=== PATIENT | female | born 1980 | race Two or more races ===

== ENCOUNTER 2025-03-19 11:14 | Outpatient (REF) | payer MEDICAID, SELFPAY ==
--- OUTSIDE RECORDS SUMMARY | 2025-03-19 10:15 | XMS_ITS | Encounter Summary ---
Author Organization [employer] Address [address] [facility] 7 [place] [address] Care Team Providers Care Event Specialist Name Role Phone Nadya Miller NP Primary Care Provider [phone] Reason for Referral * Consultation (Routine) - Authorized Specialty Diagnoses / Procedures Referred By David t Referred To Contact Dental Space Operations / Dentistry Diagnoses Healthcare maintenance Nadya Miller NP [address] [place] [address] Phone: tel: fax: Referral ID Status Reason Start Date Expiration Date Visits Requested Visits Authorized [id number] Authorized Consult and Treat 03/19/2025 03/19/2026 1 1 * Imaging (Routine) - Authorized Specialty Diagnoses / Procedures Referred By David t Referred To Contact Radiology Diagnoses Routine screening for STI (sexually transmitted infection) Procedures BI Mammogram Screening Tomosynthesis Bilateral Nadya Miller NP [address] [place] [address] Phone: tel: fax: [facility] [address] [place] [phone] Phone: tel: fax: Referral ID Status Reason Start Date Expiration Date V isits Requested Visits Authorized [id number] Authorized 03/19/2025 03/19/2026 1 1 * Imaging (Routine) - Authorized Specialty Diagnoses / Procedures Referred By Contac t Referred To Contact Radiology Diagnoses Menorrhagia with regular cycle Procedures Us Pelvis complete Nadya Miller NP [address] [place] [address] Phone: tel: fax: [address] [phone] Phone: tel: fax: Referral ID Status Reason Start Date Expiration Date V isits Requested Visits Authorized [id number] Authorized 03/19/2025 03/19/2026 1 1 * Imaging (Urgent) - Authorized Specialty Diagnoses / Procedures Referred By Contac t Referred To Contact Radiology Diagnoses Menorrhagia with regular cycle Procedures US Pelvis Transvaginal Nadya Miller NP [address] [place] [address] Phone: tel: fax: [address] [phone] Phone: tel: fax: Referral ID Status Reason Start Date Expiration Date V isits Requested Visits Authorized [id number] Authorized 03/19/2025 03/19/2026 1 1 * Consultation (Routine) - Pending Review Specialty Diagnoses / Procedures Referred By David t Referred To Contact Obstetrics and Gynecology Diagnoses Menorrhagia with regular cycle Nadya Miller NP [address] [place] [address] Phone: tel: fax: Referral ID Status Reason Start Date Expiration Date Visits Requested Visits Authorized [id number] Pending Review Specialty Services Required 03/19/2026 1 1 Reason for Visit * Reason Comments New pt Encounter Details Date Type Department Care Team (Late st Contact Info) Description 03/19/2025 10:15 AM EST Office Visit [facility] [address] [place] [address] Nadya Miller NP [address] [place], [place] [id number] Healthcare maintenance (Primary Dx); Restless leg syndrome; Routine screening for STI (sexually transmitted infection); Lipid screening; Menorrhagia with regular cycle; Mild intermittent asthma, unspecified whether complicated; Acute right-sided low back pain without sciatica; Acute cystitis with hematuria Social History Tobacco Use Types Packs/Day Years Used Date Smoking Tobacco: Never Assessed Housing Stability Answer Date Recorded What is your housing situation today? I have mariann carlos 03/11/[address] you li ve. Do you have problems with any of the following? None of the above 03/11/2025 Food Insecurity Answer Date Recorded Within the past 12 months, y ou worried that your food would run out before you got money to buy more: Never True 03/11/2025 Within the past 12 months,th e food you bought just didn't last and you didn't have enough money to get more: Never True 01/2025 Transportation Answer Date Recorded In the past 12 months, has l ack of transportation kept you from medical appts, meetings, work or from getting things needed for daily living? No 03/11/2025 Utilities Answer Date Recorded In the past 12 months, has t he electric, gas, oil or water company threatened to shut off services in your home? No 03/11/2025 Internet Access Answer Date Recorded Internet Access Q1 Yes 03/11/2025 Internet Access Q2 Not on file 03/11/2025 Comments Unknown Sex and Gender Information Value Date Recorded Sex Assigned at Female 03/04/2025 2:11 PM EST Legal Sex Female 7:05 PM EDT Gender Identity Female 07/12/2023 7:05 PM EDT Sexual Orientation Straight 07/12/2023 7: 05 PM EDT documented as of this encounter Last Filed Vital Signs Vital Sign Reading Time Taken Comments Blood Pressure 128/86 03/19/2025 10:10 AM EST Pulse 76 03/19/2025 10:10 AM EST Temperature 36.9 C (98.4 F) 03/19/2025 10:10 AM EST Respiratory Rate 17 03/19/2025 10:10 AM EST Oxygen Saturation - - Inhaled Oxygen Concentration - - Weight 100 kg (220 lb 12.8 oz) 03/19/2025 10:10 AM EST Height 166.7 cm (5' 5.63 ) 03/19/2025 10:10 AM [place] GLORIA Body Mass Index 36.04 03/19/2025 10:10 AM EST documented in this encounter Functional Status * Trouble falling or staying asleep, or sleeping too much Answer Date of Assessment Author Nearly every day 03/19/2025 11:09 AM Indu Lopez [place] * Feeling tired or having little energy Answer Date of Assessment Author Nearly every day 03/19/2025 11:09 AM Indu Lopez [place] * Poor appetite or overeating Answer Date of Assessment Author Nearly every day 03/19/2025 11:09 AM Indu Lopez [place] * Feeling bad about yourself - or that you are a failure or have let yourself or your family down Answer Date of Assessment Author Not at all 03/19/2025 11:09 AM Indu Poe [place], [place] * Trouble concentrating on things, such as reading the newspaper or watching television Answer Date of Assessment Author Not at all 03/19/2025 11:09 AM Indu Poe [place] * Moving or speaking so slowly that other people could have noticed? Or the opposite - being so fidgety or restless that you have been moving around a lot more than usual. Answer Date of Assessment Author Not at all 03/19/2025 11:09 AM Indu Poe [place] * Thoughts that you would be better off or hurting yourself in some way Answer Date of Assessment Author Not at all 03/19/2025 11:09 AM Indu Poe [place] * Over the last 2 weeks, how often have you been bothered by any of the following problems? Question Answer Date of Assessment Author Feeling nervous, anxious, or on edge 3 03/19/2025 11:09 AM Indu Hays [place] Not being able to stop or control worrying 1 03/19/2025 11:09 AM Indu Hays [place] Worrying too much about different things 1 03/19/2025 11:09 AM Indu Hays [place] Trouble relaxing 3 03/19/2025 11:09 AM Indu Hays [place] Being so restless that it is hard to sit still 0 03/19/2025 11:09 AM Indu Hays [place] Becoming easily annoyed or irritable 0 03/19/2025 11:09 AM Indu Hays [place] Feeling afraid as if something awful might happen 0 03/19/2025 11:09 AM Indu Lopez [place] VIPUL-7 Total Score 8 03/19/2025 11:09 AM Indu Hays [place] documented as of this encounter Miscellaneous Notes * Assessment & Plan Note - Nadya Miller NP - 03/19/2025 10:15 AM ESTAssociated Problem(s): Restless leg syndrome - Restless leg syndrome likely, possibly related to iron deficiency due to heavy menstrual bleeding. - Ordered iron studies. Will review results and initiate iron supplementation if indicated. Will follow up after lab results. Orders: CBC auto differential; Future Ferritin; Future Iron And Total Iron Binding Capacity; Future * Assessment & Plan Note - Nadya Miller NP - 03/19/2025 10:15 AM ESTAssociated Problem(s): Mild intermittent asthma - Mild intermittent asthma with recent exacerbation. - Prescribed albuterol inhaler for symptomatic relief. Advised to use two puffs as needed for dyspnea. If frequency of use increases to more than two to three times per week, will consider daily inhaler. Orders: albuterol 108 (90 Base) MCG/ACT inhaler; Inhale 2 puffs every 4 (four) hours if needed for wheezing. * Assessment & Plan Note - Nadya Miller NP - 03/19/2025 10:15 AM ESTAssociated Problem(s): Menorrhagia with regular cycle - Menorrhagia likely secondary to uterine fibroids. - Referred to gynecology for evaluation and management. Ordered transvaginal and pelvic ultrasound for further assessment. Will follow up after gynecology evaluation and imaging. Orders: CBC auto differential; Future Referral to Obstetrics / Gynecology; Future US Pelvis Transvaginal; Future Us Pelvis complete; Future Ferritin; Future Iron And Total Iron Binding Capacity; Future documented in this encounter Plan of Treatment Scheduled Orders Name Type Priority Associated Diagnoses Orde r Schedule CBC auto differential Lab Routine Healthcare maintenance Restless leg syndrome Menorrhagia with regular cycle Expected: 03/19/2025 (Approximate), Expires: 03/19/2026 Comprehensive Metabolic Panel Lab Routine Healthcare maintenance Expected: 03/19/2025 (Approximate), Expires: 03/19/2026 Hemoglobin A1c Lab Routine Healthcare maintenance Expected: 03/19/2025 (Approximate), Expires: 03/19/2026 HIV-1/2 Antigen and Antibodies, Fourth Generation, with Reflexes Lab Routine Routine screening for STI (sexually transmitted infection) Expected: 03/19/2025 (Approximate), Expires: 03/19/2026 Hepatitis C Antibody with Reflex to HCV, RNA, Quantitative, Real-Time PCR Lab Routine Routine screening for STI (sexually transmitted infection) Expected: 03/19/2025, Expires: 03/19/2026 Lipid Panel, Standard Lab Routine Healthcare maintenance Lipid screening Expected: 03/19/2025 (Approximate), Expires: 03/19/2026 TSH with Reflex to Free T4 Lab Routine Healthcare maintenance Expected: 03/19/2025 (Approximate), Expires: 03/19/2026 Chlamydia/N. Gonorrhoeae, PCR, Urine Lab Routine Routine screening for STI (sexually transmitted infection) Ordered: 03/19/2025 Hepatitis B Core Antibody, Total Lab Routine Routine screening for STI (sexually transmitted infection) Expected: 03/19/2025 (Approximate), Expires: 03/19/2026 Hepatitis B Surface Antibody, Qualitative Lab Routine Routine screening for STI (sexually transmitted infection) Expected: 03/19/2025 (Approximate), Expires: 03/19/2026 Hepatitis B surface antigen, EIA Lab Routine Routine screening for STI (sexually transmitted infection) Expected: 03/19/2025 (Approximate), Expires: 03/19/2026 Syphilis Screen Lab Routine Routine screening for STI (sexually transmitted infection) Expected: 03/19/2025 (Approximate), Expires: 03/19/2026 US Pelvis Transvaginal Imaging Urgent Menorrhagia with regular cycle Expected: 03/19/2025, Expires: 03/19/2026 Us Pelvis complete Imaging Routine Menorrhagia with regular cycle Expected: 03/19/2025, Expires: 03/19/2026 BI Mammogram Screening Tomosynthesis Bilateral Imaging Routine Routine screening for STI (sexually transmitted infection) Expected: 03/19/2025, Expires: 05/20/2026 Ferritin Lab Routine Restless leg syndrome Menorrhagia with regular cycle Expected: 03/19/2025, Expires: 03/19/2026 Iron And Total Iron Binding Capacity Lab Routine Restless leg syndrome Menorrhagia with regular cycle Expected: 03/19/2025, Expires: 03/19/2026 Scheduled Referrals Name Type Priority Associated Diagnoses Orde r Schedule Referral to Obstetrics / Gynecology Outpatient Referral Routine Menorrhagia with regular cycle Expected: 03/19/2025 (Approximate), Expires: 03/19/2026 Referral to [facility] Outpatient Referral Routine Healthcare maintenance Expected: 03/19/2025 (Approximate), Expires: 03/19/2026 documented as of this encounter Procedures Procedure Name Priority Date/Time Associated Diagnosis Comments POCT URINALYSIS DIPSTICK Routine 03/19/2025 11:03 AM EST Healthcare maintenance documented in this encounter Results * (ABNORMAL) POCT Urinalysis (03/19/2025 11:03 AM EST) Color, UA Light Yellow Clarity, UA Cloudy Glucose, UA Negative Bilirubin, UA Negative Ketones, UA Negative Spec Grav, UA 1.025 Blood, UA Positive(A) Negative, None Detected Comment:Intact pH, UA 6.0 Protein, UA Trace Urobilinogen, UA 0.2 Leukocytes, UA Trace Negative, Rare, Trace, 1+ (17), 2+ (35), 3+ (70), Trace (15) Nitrite, UA Positive(A) Negative, None Detected Appearance, UA cloudy QC Media Lot # [id number] Lot# Expiration Date Urine (Urine, Random) 03/19/2025 11:03 AM EST Nadya Miller NP POINT OF CARE TEST ENTER/EDIT O RDERABLES Final Result documented in this encounter Visit Diagnoses Diagnosis Healthcare maintenance- Primary Restless leg syndrome Restless legs syndrome (RLS) Routine screening for STI (sexually transmitted infection) Screening examination for venereal disease Lipid screening Screening for lipoid disorders Menorrhagia with regular cycle Mild intermittent asthma, unspecified whether complicated Acute right-sided low back pain without sciatica Acute cystitis with hematuria documented in this encounter Care Teams Event Specialist Relationship Specialty Start Date End Date Nadya Miller, VALENTE [address] [place] [phone] PCP - General Nurse Practitioner 03/19/25 documented as of this encounter
--- OUTSIDE RECORDS SUMMARY | 2025-03-19 13:18 | XMS_ITS | Clinical Summary ---
Author Organization [employer] Address [address] [facility] [address] [place] [address] Care Team Providers Care Supply Aide Name Role Phone Nadya Miller NP Primary Care Provider [phone] Allergies No known active allergies Medications albuterol 108 (90 Base) MCG/ACT inhalerIndication s:Mild intermittent asthma, unspecified whether complicated Inhale 2 puffs every 4 (four) hours if needed for wheezing. 18 g 03/19/20 26 Active nitrofurantoin, macrocrystal-mono hydrate, (Macrobid) 100 MG capsuleIndication s:Acute cystitis with hematuria Take 1 capsule (100 mg) by mouth 2 times daily for 7 days. 14 capsule 5 03/26/20 25 Active Active Problems Problem Noted Date Diagnosed Date Restless leg syndrome 03/19/2025 Assessment & Plan (03/19/2025 12:30 PM EST): - Restless leg syndrome likely, possibly related to iron deficiency due to heavy menstrual bleeding. - Ordered iron studies. Will review results and initiate iron supplementation if indicated. Will follow up after lab results. Orders: CBC auto differential; Future Ferritin; Future Iron And Total Iron Binding Capacity; Future Mild intermittent asthma 03/19/2025 Assessment & Plan (03/19/2025 12:30 PM EST): - Mild intermittent asthma with recent exacerbation. - Prescribed albuterol inhaler for symptomatic relief. Advised to use two puffs as needed for dyspnea. If frequency of use increases to more than two to three times per week, will consider daily inhaler. Orders: albuterol 108 (90 Base) MCG/ACT inhaler; Inhale 2 puffs every 4 (four) hours if needed for wheezing. Menorrhagia with regular cycle 03/19/2025 Assessment & Plan (03/19/2025 12:30 PM EST): - Menorrhagia likely secondary to uterine fibroids. - Referred to gynecology for evaluation and management. Ordered transvaginal and pelvic ultrasound for further assessment. Will follow up after gynecology evaluation and imaging. Orders: CBC auto differential; Future Referral to Obstetrics / Gynecology; Future US Pelvis Transvaginal; Future Us Pelvis complete; Future Ferritin; Future Iron And Total Iron Binding Capacity; Future Encounters Date Type Department Care Team Description 03/19/2025 10:15 AM EST Office Visit [facility] [address] [place] [id number] Nadya Miller NP Healthcare maintenance (Primary Dx); Restless leg syndrome; Routine screening for STI (sexually transmitted infection); Lipid screening; Menorrhagia with regular cycle; Mild intermittent asthma, unspecified whether complicated; Acute right-sided low back pain without sciatica; Acute cystitis with hematuria 03/19/2025 Travel 03/18/2025 Telephone [facility] [address] [place] [phone] Nadya Miller NP Chart Prep 03/12/2025 Travel 03/11/2025 Patient Outreach [facility] [address] [place] [phone] Nadya Miller NP Pre-visit Planning (SDOH Screening negative and Tobacco screening negative) 03/03/2025 Telephone [facility] INS ENROLLMENT [address] [place] [address] Michelle Braswell MD from Last 3 Months Social History Tobacco Use Types Packs/Day Years [...] Orientation Straight 07/12/2023 7: 05 PM EDT Last Filed Vital Signs Vital Sign Reading [...] cm (5' 5.63 ) 03/19/2025 10:[address] Body Mass Index 36.04 03/19/2025 10:10 AM EST Plan of Treatment Health Maintenance Due Date Last Done Comments CT Colonography 1979 Colonoscopy 1979 Colorectal Cancer Screening 1979 Depression Screening 1979 FIT DNA/Cologuard 1979 FIT 1979 FOBT 1979 HIV Screening 1979 Sigmoidoscopy 1979 Tobacco Screening 1991 Family Planning (PISQ) 1994 Hepatitis C Screening 1997 DTaP/Tdap/Td Vaccines (1 - Tdap) 1998 Hepatitis B Vaccines (1 of 3 - 19+ 3-dose series) 1998 Pneumococcal Vaccine: Pediat rics (0 to 5 Years) and At-Risk Patients (6 to 49) Years (1 of 2 - PCV) 1998 Pap Smear 2000 Cervical Cancer Screening 2009 HPV/Cotest 2009 Mammogram 2019 COVID-19 Vaccine (2 - 2024-2 6 season) 2024 06/18/2022 Influenza Vaccine (#1) 2024 Alcohol/Substance Use Screening 03/19/2026 Disability Screening 03/19/2026 03/19/2025 SDOH Screening 03/19/2026 03/19/2025 Zoster Vaccines (1 of 2) 2029 RSV Patients and Pa tients Aged 60 years or older (1 - 1-dose 75+ series) 2054 HIB Vaccines Aged Out No longer eligi ble based on patient's age to complete this topic HPV Vaccines Aged Out No longer eligi ble based on patient's age to complete this topic Hepatitis A Vaccines Aged Out No long er eligible based on patient's age to complete this topic IPV Vaccines Aged Out No longer eligi ble based on patient's age to complete this topic Meningococcal B Vaccine Aged Out No l onger eligible based on patient's age to complete this topic Meningococcal Vaccine Aged Out No urvashi oren eligible based on patient's age to complete this topic RSV under 20 months Aged Out No longe r eligible based on patient's age to complete this topic Rotavirus Vaccines Aged Out No longer eligible based on patient's age to complete this topic Procedures Procedure Name Priority Date/Time Associated Diagnosis Comments POCT URINALYSIS DIPSTICK Routine 03/19/2025 11:03 AM EST Healthcare maintenance from Last 3 Months Results * (ABNORMAL) POCT Urinalysis (03/19/2025 11:03 [...] Media Lot # [id number] Lot# Expiration Date ,026 Urine (Urine, Random) 03/19/2025 11:03 AM EST Nadya Miller NP POINT OF CARE TEST ENTER/EDIT O RDERABLES Final Result from Last 3 Months [facility] Care Teams Supply Aide Relationship Specialty Start Date End Date Nadya Miller NP [address] [place] [phone] PCP - General Nurse Practitioner 03/19/25
--- OUTSIDE RECORDS SUMMARY | 2025-03-19 13:18 | XMS_ITS | Encounter Summary ---
Author Organization [employer] Address [address] [facility] [address] [place] [address] Care Team Providers Care Referral Agent Name Role Phone Unavailable Primary Care Provider Unavailabl e Reason for Visit * Reason Onset Date Comments Chart Prep 03/18/2025 Encounter Details Date Type Department Care Team ([facility] st Contact Info) Description 03/18/2025 Telephone [facility] [address] [place] [address] Nadya Miller, VALENTE [address] [place] [address] Chart Prep Social History Tobacco Use Types Packs/Day Years [...] PM EDT documented as of this encounter Miscellaneous Notes * Telephone Encounter - Indu Esparza [place] - 03/18/2025 9:47 AM EST Chart Prep Labs: not applicable Images: not applicable Referrals: not applicable Vaccines due: Covid, Flu, Tdap, and Hep B Screenings: colonoscopy, mammogram, LMP, and HIV, Hep C, Cervical cancer. Overdue care gaps: SBIRT, PHQ-9, VIPUL-7, Disability screen, and Tobacco documented in this encounter Plan of Treatment Not on file documented as of this encounter Visit Diagnoses Not on filedocumented in this encounter
--- OUTSIDE RECORDS SUMMARY | 2025-03-19 13:18 | XMS_ITS | Encounter Summary ---
Author Organization [employer] [facility] Address [address] [place] [address] Care Team Providers Care Bleach Packer Name Role Phone Nadya Miller NP Primary Care Provider [phone] Encounter Details Date Type Department Care Team (Latest Contact Info) Description 03/19/2025 Travel Social History Tobacco Use Types Packs/Day Years Used Date Smoking Tobacco: Never Assessed Housing Stability Answer Date Recorded What is your housing situation today? I have mariannraul carlos 03/11/[address] you [...] t he electric, gas, oil or water [employer] threatened to shut off services in your [...] PM EDT documented as of this encounter Plan of Treatment Not on file documented as of this encounter Visit Diagnoses Not on filedocumented in this encounter Care Teams Bleach Packer Relationship Specialty Start Date End Date Nadya Miller NP [address] [place] [id number] PCP - General Nurse Practitioner 03/19/25 documented as of this encounter
[2025-03-19 14:56] LABS: MANUAL DIFF FLAG NO
[2025-03-19 15:16] LABS: Hematocrit 29.8 % (37.0-47.0); Hemoglobin 8.9 g/dl (12.0-16.0); Imm Gran Abs Auto 0.01 X10*3/uL (0.00-0.03); Imm Gran Pct Auto 0.2 % (0.0-0.4); Lymphocytes Absolute Auto 1.3 X10*3/uL (1.2-4.9); Mean Corpuscular HGB Conc 29.9 g/dl (31.0-35.0); Mean Corpuscular Hemoglobin 20.2 pg (27.0-33.0); Mean Corpuscular Volume 67.6 fL (80.0-98.0); NRBC Abs Auto 0.000 X10*3/uL (0.0-0.012); NRBC Pct Auto 0.0 /100WBC (0.0-0.2); Platelet Count 327 X10*3/uL (160-400); Red Blood Count 4.41 X10*6/uL (4.20-5.50); White Blood Count 6.3 X10*3/uL (4.8-10.8)
[2025-03-19 15:54] LABS: Alanine Aminotransferase 36 U/L (0-31); Albumin Level 4.2 g/dL (3.5-5.0); Alkaline Phosphatase 79 U/L (39-117); Anion Gap 10 (12-20); Aspartate Amino Transferase 25 U/L (5-31); Blood Urea Nitrogen 9 mg/dL (9-16); Calcium 9.1 mg/dL (8.4-10.2); Carbon Dioxide 23 mmol/L (22-29); Chloride 110 mmol/L (96-108); Cholesterol 140 mg/dL (<200); Estimated Glomerular Filt Rate > 60; HDL Cholesterol 47 mg/dL (>40); Iron 18 mcg/dL (30-160); Percent Iron Saturation 5 % (15-50); Potassium 3.9 mmol/L (3.3-5.1); Sodium 139 mmol/L (135-145); Total Iron Binding Capacity 347 mcg/dL (228-428); Total Protein 7.1 g/dL (6.5-8.0); Triglycerides 48 mg/dL (<150); Unsaturated Iron Binding 329 ug/dL
[2025-03-19 15:56] LABS: Ferritin 6 ng/mL (10-250)
[2025-03-20 01:23] LABS: CT PCR Urine NOT DETECTED (Not Detect.); NG PCR Urine NOT DETECTED (Not Detect.)
[2025-03-22 03:51] LABS: Syphilis Screen Nonreactive (Nonreactive)
[2025-03-22 05:01] LABS: HBS Num1 1.80 mIU/mL (0-7.99); HBc Num1 0.10 S/CO (0.00-0.79); HBsAGNum1 0.31 S/CO (0.00-0.99); HIV Num 1 0.07 S/CO (0.00-0.99); Hepatitis B Surface Antigen Negative (Negative); ~HepC Num1 0.12 S/CO (0.00-0.79); ~Hepatitis B Surface Antibody NONREACTIVE (Nonreactive); ~Hepatitis C Antibody Nonreactive (Nonreactive)
== END 2025-03-19 11:15 | disposition home or self-care (01) ==
LOC: HO.HHCL 11:14
DX: Z00.00 Encounter for general adult medical examination without abnormal findings (principal); Z13.220 Encounter for screening for lipoid disorders; G25.81 Restless legs syndrome; N92.0 Excessive and frequent menstruation with regular cycle; Z11.4 Encounter for screening for human immunodeficiency virus [HIV]; Z20.2 Contact with and (suspected) exposure to infections with a predominantly sexual mode of transmission; Z11.59 Encounter for screening for other viral diseases
CPT/HCPCS: 36415; 80053; 80061; 82728; 83036; 83540; 84443; 85025; 86704; 86706; 86780; 86803; 87340; 87389; 87491; 87591